=== PATIENT | female | born 1970 | race Two or more races ===

== ENCOUNTER 2020-03-11 21:26 | Emergency (ER) | payer MEDICAID, OTHER ==
[~2020-03-11] VITALS: Ht 165.1 cm; Wt 72.6 kg
[2020-03-11 21:30] VITALS: BP 153/82
--- NOTE | 2020-03-11 21:58 | Emergency Room Report ---
History of Present Illness General Chief Complaint: Upper Respiratory Illness Source: Patient Present Illness HPI Patient presents with 8 days of increasing dyspnea on exertion. This morning it was more severe and lasted throughout the day even at rest. She has a history of bronchitis. She denies having fevers or chills or sore throat.. There is been no vomiting or diarrhea. She denies chest pain. There is no calf pain or edema. She is been self isolating and is uncertain whether she has been exposed to COVID-19 from other sources. She does not smoke. 6 months ago,she was prescribed an inhaler which seemed to help her minimally. She says that there is a pill that her doctor prescribed for her but is not helping at this time. She is not sure what that medication is. She denies diabetes high blood pressure heart disease but is overweight. No palpitations, nausea, dysuria, abdominal pain, joint pain, rashes, depression , anxiety, visual changes, dizziness, headache. Allergies: Coded Allergies: No Known Allergies (Unverified , 03/11/20) COVID-19 Screening Contact w/high risk pt: No Recent Travel to affected area: No Experienced COVID-19 symptoms?: Yes COVID-19 symptoms experienced: Cough COVID-19 Testing performed UNDERWRITING SUPPORT SPECIALIST: No Patient History Past Medical History: see triage record Social History: Denies: smoking, alcohol use, drug use Social History Narrative at home Last Menstrual Period: n/a Reviewed Nursing Documentation: PMH: Agreed; PSxH: Agreed Review of Systems All Other Systems: negative except mentioned in HPI Physical Exam Vital Signs Date Time Temp Pulse Resp B/P (MAP) Pulse Ox O2 Delivery O2 Flow Rate FiO2 03/11/20 21:27 98.8 76 18 148/77 (100) 96 Room Air Sp02 EP Interpretation: reviewed, normal General Appearance: alert, GCS 15, non-toxic, mild distress Head: normocephalic Eyes: bilateral eye normal inspection, bilateral eye PERRL, bilateral eye EOMI ENT: moist mucus membranes Neck: supple Respiratory: lungs clear, normal breath sounds, other - Tachypnea Cardiovascular #1: regular rate, rhythm, no edema Cardiovascular #2: 2+ radial (R) Gastrointestinal: normal inspection, normal bowel sounds, non tender, no mass, non-distended, overweight Genitourinary: no CVA tenderness Musculoskeletal: back normal, normal range of motion, no calf tenderness, gait/ station normal Neurologic: alert, oriented x3, grossly normal Psychiatric: depressed affect Skin: no rash, warm/dry Procedures Critical Care Time Critical Care Time Total Critical Care Time: 45 min bedside evaluation and treatment excludes procedures (EKG). Reason for critical care: Dyspnea, high suspicion for COVID-19, discussions with transferring MD, family and transfer team Possible complications: hypotension, hypertension, MS, shock, arrhythmias, metabolic acidosis, end organ damage, respiratory failure. Interventions: Lovenox, azithromycin, Rocephin, dexamethasone, oxygen Course: Patient presented with dyspnea. Clinical constellation suggests COVID- 19. Chest x-ray with bilateral infiltrates. Lovenox, dexamethasone and azithromycin begun. Discussion with patient and family. Discussion with transferring MD who requested rapid COVID-19 testing. Rapid COVID-19 test returns negative. Due to the clinical constellation it is felt this is a false negative result. Rocephin added. Re-discussion with transferring MD and family. Discussion with transferring post hole digger for the use of proper PPE and transfer. Patient improved with treatment and oxygen. Consultations: nursing staff, EMS, family, accepting physician, transport team Performed by: Dr. Kraft Tolerated well condition = serious Medical Decision Making Diagnostic Impression: Primary Impression: Pneumonia Qualified Codes: J18.9 - Pneumonia, unspecified organism Additional Impressions: COVID-19 Suspected COVID-19 virus infection Elevated LFTs Lymphopenia ER Course Patient presents with dyspnea on exertion. Differential includes bronchospasm, acute myocardial infarction, bronchitis, COVID-19, pulmonary embolus and anxiety amongst others. She is not hypoxemic at this time but she is has resting dyspnea. Evaluation with EKG, chest x-ray and labs including possible COVID-19 reactive. Consideration for observation in the hospital. If patient deteriorates consider reconsider increasing oxygen and also proning. EKG sinus rhythm without acute changes. CXR bilateral infiltrates. White count normal however there is a lymphopenia. Normal d-dimer. Elevated liver function tests. C-reactive protein elevated. Ferritin normal. In this clinical setting, suspicion for COVID-19 pneumonia is high. Patient not hypoxemic however with tachypnea and increased work with breathing. Lovenox, dexamethasone and azithromycin begun. Discussed with children working diagnosis and plan for admission. HMO requesting rapid COVID-19 test. Rapid COVID-19 test returns negative. However my suspicion is high. I believe it is a false negative test. Flashhin is added. Discussed with patient's family possible transfer. Discussed with Dr. Ac at [facility]. I discussed that clinically my suspicion for COVID-19 pneumonia is extremely high. He understands this and accepts the patient to a telemetry unit in isolation. Discussed the high suspicion for COVID-19 with transfer post hole digger. Ensured that they had proper protective equipment. Laboratory Tests Test 03/11/20 22:40 White Blood Count 7.8 K/UL (4.8-10.8) Red Blood Count 3.95 M/UL (4.20-5.40) L Hemoglobin 12.0 G/DL (12.0-16.0) Hematocrit 36.3 % (37.0-47.0) L Mean Corpuscular Volume 92 FL (80-99) Mean Corpuscular Hemoglobin 30.5 PG (27.0-31.0) Mean Corpuscular Hemoglobin Concent 33.2 G/DL (32.0-36.0) Red Cell Distribution Width 12.5 % (11.6-14.8) Platelet Count 405 K/UL (150-450) Mean Platelet Volume 6.6 FL (6.5-10.1) Neutrophils (%) (Auto) 75.9 % (45.0-75.0) H Lymphocytes (%) (Auto) 19.1 % (20.0-45.0) L Monocytes (%) (Auto) 4.5 % (1.0-10.0) Eosinophils (%) (Auto) 0.1 % (0.0-3.0) Basophils (%) (Auto) 0.5 % (0.0-2.0) Prothrombin Time 10.6 SEC (9.30-11.50) Prothrombin Time INR 1.0 (0.9-1.1) Activated Partial Thromboplast Time 25 SEC (23-33) D-Dimer 0.37 mg/L FEU (0.00-0.49) Urine Color Yellow Urine Appearance Clear Urine pH 6.5 (4.5-8.0) Urine Specific [place] 1.010 (1.005-1.035) Urine Protein 3+ (NEGATIVE) H Urine Glucose (UA) Negative (NEGATIVE) Urine Ketones 1+ (NEGATIVE) H Urine Blood 1+ (NEGATIVE) H Urine Nitrite Negative (NEGATIVE) Urine Bilirubin 2+ (NEGATIVE) H Urine Ictotest Negative (NEGATIVE) Urine Urobilinogen 8 MG/DL (0.0-1.0) H Urine Leukocyte Esterase 1+ (NEGATIVE) H Urine RBC 2-4 /HPF (0 - 2) H Urine WBC 2-4 /HPF (0 - 2) Urine Squamous Epithelial Cells Moderate /LPF (NONE/OCC) H Urine Bacteria Few /HPF (NONE) Sodium Level 138 MMOL/L (136-145) Potassium Level 4.9 MMOL/L (3.5-5.1) Chloride Level 99 MMOL/L (98-107) Carbon Dioxide Level 27 MMOL/L (21-32) Anion Gap 12 mmol/L (5-15) Blood Urea Nitrogen 11 mg/dL (7-18) Creatinine 0.8 MG/DL (0.55-1.30) Estimated Glomerular Filtration Rate > 60 mL/min (>60) Glucose Level 158 MG/DL (74-106) H Lactic Acid Level 1.70 mmol/L (0.4-2.0) Calcium Level 8.6 MG/DL (8.5-10.1) Ferritin 238 NG/ML (8-388) Total Bilirubin 0.8 MG/DL (0.2-1.0) Aspartate Amino Transferase (AST) 134 U/L (15-37) H Alanine Aminotransferase (ALT) 114 U/L (12-78) H Alkaline Phosphatase 287 U/L (46-116) H Lactate Dehydrogenase 505 U/L (81-234) H Total Creatine Kinase 89 U/L (26-308) Troponin I 0.000 ng/mL (0.000-0.056) C-Reactive Protein, Quantitative 8.9 mg/dL (0.00-0.90) H Pro-B-Type Natriuretic Peptide 59 pg/mL (0-125) Total Protein 8.4 G/DL (6.4-8.2) H Albumin 2.9 G/DL (3.4-5.0) L Globulin 5.5 g/dL Albumin/Globulin Ratio 0.5 (1.0-2.7) L Microbiology Date/Time Source Procedure Growth Status 03/12/20 00:45 Nasopharynx SARS-CoV-2 RdRp Gene Assay - Final Complete EKG Diagnostic Results Rate: normal Rhythm: NSR ST Segments: no acute changes Rhythm Strip Diag. Results EP Interpretation: yes Rhythm: NSR, no PVC's, no ectopy Chest X-Ray Diagnostic Results Chest X-Ray Diagnostic Results : Chest X-Ray Ordered: Yes # of Views/Limited/Complete: 1 View Indication: Shortness of Breath EP Interpretation: Yes Interpretation: no effusion, no pneumothorax, other - bilateral infiltrates Last Vital Signs Date Time Temp Pulse Resp B/P (MAP) Pulse Ox O2 Delivery O2 Flow Rate FiO2 03/12/20 03:48 99.0 76 28 152/86 98 Nasal Cannula 1.0 Status: improved Disposition: SHORT-TERM HOSP Condition: Serious Scripts Unable to Obtain Active Prescriptions or Reported Meds Tc Kraft MD Mar 11, 2020 21:58
[2020-03-11 22:59] VITALS: BP 138/77
[2020-03-11 23:13] LABS: ANION GAP 12 mmol/L (5-15); BLOOD UREA NITROGEN 11 mg/dL (7-18); CALCIUM 8.6 MG/DL (8.5-10.1); CARBON DIOXIDE 27 MMOL/L (21-32); CHLORIDE 99 MMOL/L (98-107); CREATININE 0.8 MG/DL (0.55-1.30); POTASSIUM 4.9 MMOL/L (3.5-5.1); SODIUM 138 MMOL/L (136-145)
[2020-03-11 23:25] LABS: BASOPHILS % (AUTO) 0.5 % (0.0-2.0); EOSINOPHILS % (AUTO) 0.1 % (0.0-3.0); HEMATOCRIT 36.3 % (37.0-47.0); LYMPHOCYTES % (AUTO) 19.1 % (20.0-45.0); MEAN CORPUSCULAR VOLUME 92 FL (80-99); MONOCYTES % (AUTO) 4.5 % (1.0-10.0); NEUTROPHILS % (AUTO) 75.9 % (45.0-75.0); PLATELET COUNT 405 K/UL (150-450); RED BLOOD COUNT 3.95 M/UL (4.20-5.40); RED CELL DISTRIBUTION WIDTH 12.5 % (11.6-14.8); WHITE BLOOD COUNT 7.8 K/UL (4.8-10.8)
[2020-03-11 23:38] LABS: ALANINE AMINOTRANSFERASE 114 U/L (12-78); ALBUMIN 2.9 G/DL (3.4-5.0); ALBUMIN/GLOBULIN RATIO 0.5 (1.0-2.7); ALKALINE PHOSPHATASE 287 U/L (46-116); ASPARTATE AMINO TRANSFERASE 134 U/L (15-37); BILIRUBIN,TOTAL 0.8 MG/DL (0.2-1.0); CREATINE KINASE 89 U/L (26-308); FERRITIN 238 NG/ML (8-388); LACTATE DEHYDROGENASE 505 U/L (81-234)
[2020-03-11 23:40] LABS: COLOR,URINE YELLOW
[2020-03-11 23:41] LABS: APPEARANCE,URINE CLEAR; PH,URINE 6.5 (4.5-8.0); PROTEIN,URINE 3+ (NEGATIVE)
[2020-03-11 23:42] LABS: BILIRUBIN, URINE 2+ (NEGATIVE); GLUCOSE, URINE (UA) NEGATIVE (NEGATIVE); KETONES,URINE 1+ (NEGATIVE); LEUKOCYTE ESTERASE ,URINE 1+ (NEGATIVE); NITRITE,URINE NEGATIVE (NEGATIVE); UROBILINOGEN,URINE 8 MG/DL (0.0-1.0)
[2020-03-12] MEDS ORDERED: Enoxaparin 80mg Inj SUBQ SCH
[2020-03-12] MEDS ORDERED: Azithromycin 500 MG in D5W 275 ML IVPB ONE ×2
[2020-03-12] MEDS ORDERED: cefTRIAXone 1 GM in NS 55 ML IVPB ONE (01:30)
[2020-03-12 01:31] VITALS: BP 147/86
[2020-03-12 03:03] VITALS: BP 148/72
[2020-03-12 03:48] VITALS: BP 152/86
--- NOTE | 2020-03-12 09:59 | Diagnostic Imaging Report ---
Procedure: XRAY Chest 1v Reason for study: Reason For Exam: [id number] Comparison films: None. FINDINGS: A single one view chest is obtained. Vascularity is normal. There are bilateral infiltrates in the mid to lower lung zones. Cardiac and mediastinal silhouette are within normal limits. CP angles are sharp. The bony thorax appear unremarkable. IMPRESSION: Bilateral infiltrates.
== END 2020-03-12 03:55 | disposition short-term general hospital (02) ==
LOC: EDBD 21:26 → EMR 21:45 → EDBEDREQ 23:58 → EMR 03-12 03:55
DX: J18.9 Pneumonia, unspecified organism (principal); U07.1 COVID-19; R94.5 Abnormal results of liver function studies; D72.810 Lymphocytopenia; R06.82 Tachypnea, not elsewhere classified
CPT/HCPCS: 36415; 71045; 80053; 81003; 82550; 82728; 83605; 83615; 83880; 84484; 85025; 85379; 85610; 85730; 86140; 87040; 93005; 96361; 96365; 96367; 96372; 96375; J0456; J0696; J1100; J1650; J7030; U0002; Z7502; 99285